=== PATIENT | male | born 1990 | race African-American/Black ===

== ENCOUNTER 2021-02-23 07:53 | Inpatient (IN) | payer MEDICAID, OTHER ==
[~2021-02-23] VITALS: Ht 185.4 cm; Wt 81.0 kg
[2021-02-23 08:36] LABS: HEMATOCRIT. 56.8 % (42.0-52.0); HEMOGLOBIN. 18.9 g/dL (14.0-18.0); MEAN CORPUSCULAR HEMOGLOBIN 30.5 pg (28.0-32.0); MEAN CORPUSCULAR VOLUME 91.3 fL (80.0-94.0); MEAN PLATELET VOLUME 9.1 fl (7.4-10.4); PLATELET 388 x1000/uL (130-400); RED BLOOD CELL COUNT 6.22 mill/uL (4.7-6.1); RED CELL DISTRIBUTION WIDTH 13.8 % (11.6-14.6)
[2021-02-23 08:41] LABS: CHLORIDE 100 mEq/L (98-107)
[2021-02-23 08:51] LABS: CREATINE KINASE 219 IU/L (39-308)
[2021-02-23 08:55] LABS: D-DIMER 4.87 mg/L FEU (<0.50); INR 1.2; PROTHROMBIN TIME 12.3 sec (9.6-11.0)
[2021-02-23 08:58] LABS: PLATELET ESTIMATE NORMAL
[2021-02-23] MEDS ORDERED: SODIUM CHLORIDE 0.9% 1,000 ML IV ONE (09:30)
[2021-02-23] MEDS ORDERED: ENOXAPARIN 80MG/0.8ML SYR SUBCUT ONE (09:30)
[2021-02-23] MEDS ORDERED: CEFTRIAXONE 1 G PREMIX 50 ML IV ONE (09:30)
[2021-02-23] MEDS ORDERED: AZITHROMYCIN 500 MG in DEXT 5% WATER 250 ML IV ONE (09:30)
[2021-02-23 09:56] LABS: BG BASE EXCESS -21.4 mmol/L (-2.0-2.0); BG CARBOXYHEMOGLOBIN 0.2 % (0.5-1.5); BG DEOXYHEMOGLOBIN 3.5 % (0.0-5.0); BG FRACTION INSPIRED OXYGEN 21; BG METHEMOGLOBIN 0.8 % (0.0-1.5); BG OXYGEN SATURATION 96.5 % (92.0-98.5); BG OXYHEMOGLOBIN 95.5 % (94.0-97.0); BG PCO2 15.7 mmHg (35.0-45.0); BG PH 7.125 (7.350-7.450); BG PO2 100.7 mmHg (75.0-100.0); BG SAMPLE SITE RIGHT RADIAL; BG TOTAL HEMOGLOBIN 20.4 g/dL (12.0-18.0); BG VENT MODE ROOM AIR
[2021-02-23] MEDS ORDERED: INSULIN REGULAR (DRIP) 100 UNITS in SODIUM CHLORIDE 0.9% 99 ML IV SCH (10:15)
[2021-02-23 10:22] LABS: CLARITY URINE CLEAR (CLEAR); COLOR URINE YELLOW (YELLOW); KETONES URINE 4+ (NEGATIVE); LEUKOCYTE ESTERASE URINE NEGATIVE (NEGATIVE); NITRITE URINE NEGATIVE (NEGATIVE); OCCULT BLOOD URINE 1+ (NEGATIVE); PROTEIN URINE 2+ (NEGATIVE); UROBILINOGEN URINE 0.2 E.U./dL (0.2-1.0)
[2021-02-23] MEDS ORDERED: ACETAMINOPHEN 325MG TABLET PO PRN (11:00)
[2021-02-23] MEDS: SODIUM CHLORIDE 0.9% 1,000 ML IV SCH ×2 (11:46→16:13)
[2021-02-23 13:14] LABS: CHLORIDE 104 mEq/L (98-107)
[2021-02-23] MEDS: DEXT 5%/0.45% NACL 1000ML 1,000 ML IV SCH (17:26)
[2021-02-23] MEDS: ONDANSETRON HCL 4MG/2ML INJ IV PRN (23:57)
[2021-02-24 00:31] LABS: CHLORIDE 112 mEq/L (98-107)
[2021-02-24] MEDS: DEXT 5%/0.45% NACL 1000ML 1,000 ML IV SCH (01:12)
[2021-02-24 04:33] LABS: CHLORIDE 111 mEq/L (98-107)
[2021-02-24 04:48] LABS: BASOPHILS % 0.4 % (0.0-2.0); EOSINOPHILS % 0.1 % (0.0-5.0); HEMATOCRIT. 45.4 % (42.0-52.0); HEMOGLOBIN. 16.2 g/dL (14.0-18.0); LYMPHOCYTES % 7.2 % (20.0-50.0); MEAN CORPUSCULAR HEMOGLOBIN 30.8 pg (28.0-32.0); MEAN CORPUSCULAR VOLUME 86.3 fL (80.0-94.0); MEAN PLATELET VOLUME 8.7 fl (7.4-10.4); MONOCYTES % 9.2 % (2.0-8.0); NEUTROPHILS % 83.1 % (40.0-76.0); PLATELET 382 x1000/uL (130-400); RED BLOOD CELL COUNT 5.26 mill/uL (4.7-6.1); RED CELL DISTRIBUTION WIDTH 13.8 % (11.6-14.6)
[2021-02-24] MEDS: ONDANSETRON HCL 4MG/2ML INJ IV PRN (05:03)
[2021-02-24] MEDS ORDERED: INSULIN LISPRO 100 UNITS/ML SUBCUT SCH (07:00)
[2021-02-24] MEDS ORDERED: DEXTROSE 50% WATER 50ML SYRINGE IV PRN (07:00)
[2021-02-24] MEDS ORDERED: INSULIN GLARGINE UD 100 UNITS/ML SYR SUBCUT NR (08:00)
[2021-02-24] MEDS ORDERED: METOCLOPRAMIDE HCL 10MG/2ML VIAL IV PRN (08:15)
[2021-02-24 08:46] LABS: CHLORIDE 111 mEq/L (98-107)
[2021-02-24] MEDS ORDERED: CEFTRIAXONE 1,000 MG in DEXTROSE 5% WATER 50 ML IV SCH (09:00)
[2021-02-24] MEDS ORDERED: CEFTRIAXONE 1 G PREMIX 50 ML IV SCH (09:00)
[2021-02-24] MEDS ORDERED: PANTOPRAZOLE SODIUM 40 MG/VIAL IV SCH (09:00)
[2021-02-24] MEDS ORDERED: AZITHROMYCIN 250 MG TABLET PO SCH (09:00)
[2021-02-24] MEDS ORDERED: ENOXAPARIN 40MG/0.4ML SYR SUBCUT SCH (09:00)
[2021-02-24 10:30] VITALS: BP 130/70
[2021-02-24 10:44] LABS: *AMPHETAMINES SCREEN URINE NEGATIVE (NEGATIVE); *BARBITURATES SCREEN URINE NEGATIVE (NEGATIVE); *BENZODIAZEPINES SCREEN URINE NEGATIVE (NEGATIVE); *COCAINE SCREEN URINE NEGATIVE (NEGATIVE); METHADONE URINE SCREEN NEGATIVE (NEGATIVE)
[2021-02-24 10:45] LABS: CANNABINOID URINE SCREEN NEGATIVE (NEGATIVE); OPIATES URINE SCREEN NEGATIVE (NEGATIVE); PHENCYCLIDINE URINE SCREEN NEGATIVE (NEGATIVE)
[2021-02-24] MEDS ORDERED: BLOOD SUGAR DIAGNOSTIC STRIP TEST SCH (11:30)
[2021-02-24] MEDS ORDERED: INSULIN GLARGINE UD 100 UNITS/ML SYR SUBCUT SCH (22:00)
== END 2021-02-24 10:30 | disposition home or self-care (01) | DRG 720 ==
LOC: ER 07:53 → UNDOADMIN 10:53 → MICUSO 10:53 → EDBEDREQSVC 11:16 → EDBEDREQ 11:16 → EDBEDREQTM 11:16 → MICUSO 21:14 → 7WST 02-24 07:23 → MICUSO 02-24 10:25
PROVIDERS: ADMIT Internal Medicine; ATTEND Internal Medicine
DX: A41.89 Other specified sepsis (principal); J12.82 Pneumonia due to coronavirus disease 2019; U07.1 COVID-19; E11.10 Type 2 diabetes mellitus with ketoacidosis without coma; E87.1 Hypo-osmolality and hyponatremia; E78.5 Hyperlipidemia, unspecified; Z87.01 Personal history of pneumonia (recurrent)
CPT/HCPCS: 36415; 36600; 71045; 80048; 80053; 80305; 81003; 82375; 82550; 82728; 82805; 82962; 83036; 83605; 83615; 84145; 84484; 85025; 85379; 85384; 86140; 93005; 99291; C9803; J0456; J0696; J1650; J1815; J2405; J2765; J7030; J7050; J7060; U0003; U0005